=== PATIENT | male | born 1995 | race Two or more races ===

== ENCOUNTER → 2021-12-23 | Outpatient (REF) | payer OTHER ==
[2021-12-23 14:28] LABS: SEMEN APPEARANCE OPAQUE (OPAQUE); SEMEN VOLUME 3.5 ml (2.0-5.0)
[2021-12-23 14:29] LABS: SEMEN VISCOSITY LIQUID (LIQUID); SPERM CONCENTRATION 60.1 M/ml (>=15.0); WBC CONCENTRATION <=1 M/ml (<=1 M/ml)
== END ==
LOC: M LAB REF 14:26
DX: Z31.41 Encounter for fertility testing (principal)

== ENCOUNTER → 2022-01-07 | Outpatient (REF) | payer OTHER ==
[2022-01-07 18:03] LABS: SEMEN APPEARANCE OPAQUE (OPAQUE); SEMEN VISCOSITY LIQUID (LIQUID); SEMEN VOLUME 3.7 ml (2.0-5.0)
[2022-01-07 18:04] LABS: SPERM CONCENTRATION 113.8 M/ml (>=15.0); WBC CONCENTRATION <=1 M/ml (<=1 M/ml)
== END ==
LOC: M LAB REF 17:58
DX: Z31.41 Encounter for fertility testing (principal)

== ENCOUNTER 2022-01-14 06:30 | Emergency (ER) | payer OTHER ==
[~2022-01-14] VITALS: Ht 172.7 cm; Wt 108.2 kg
[2022-01-14] MEDS ORDERED: LIDO5DIS41 TOP (06:44)
[2022-01-14 08:27] LABS: BASO # 0.1 10^3/uL (0.0-0.2); BASO % 0.9 % (0.0-1.0); EOS # 0.2 10^3/uL (0.0-0.5); EOS % 3.2 % (0.0-3.0); HEMATOCRIT 41.8 % (42.0-52.0); HEMOGLOBIN 13.5 g/dl (13.5-17.5); LYMPH # 3.3 10^3/uL (1.5-5.0); MEAN CORPUSCULAR HEMOGLOBIN 29.8 pg (27.0-33.0); MEAN CORPUSCULAR HGB CONC 32.3 g/dl (32.0-36.5); MEAN CORPUSCULAR VOLUME 92.3 fl (80.0-96.0); MONO # 0.6 10^3/uL (0.0-0.8); MONO % 7.6 % (2.0-8.0); NEUTROPHILS # 3.2 10^3/uL (1.5-8.5); NEUTROPHILS % 43.9 % (36.0-66.0); PLATELET COUNT, AUTOMATED 267 10^3/uL (150-450); RED BLOOD COUNT 4.53 10^6/uL (4.30-6.10); WHITE BLOOD COUNT 7.4 10^3/uL (4.0-10.0)
[2022-01-14 08:47] LABS: BLOOD UREA NITROGEN 17 MG/DL (7-18); CALCIUM LEVEL 8.9 MG/DL (8.5-10.1); CARBON DIOXIDE LEVEL 27 MEQ/L (21-32); CHLORIDE LEVEL 106 MEQ/L (98-107); CREATININE FOR GFR 0.95 MG/DL (0.70-1.30); GLOMERULAR FILTRATION RATE > 60.0 (>60); GLUCOSE, FASTING 84 MG/DL (70-100); SODIUM LEVEL 138 MEQ/L (136-145)
[2022-01-14 08:53] LABS: CPK CREATINE PHOSPHOKINASE 62 U/L (39-308)
[2022-01-14] MEDS ORDERED: KETOROLAC 30 MG/ML 1ML VIAL IV ONE (09:45)
[2022-01-14 09:55] VITALS: BP 107/63
== END 2022-01-14 10:21 | disposition home or self-care (01) ==
LOC: M ED 06:30
DX: R07.9 Chest pain, unspecified (principal); R00.1 Bradycardia, unspecified
CPT/HCPCS: 71045; 80048; 82550; 84484; 85025; 85379; 87880; 93005; 96374; 99284; J1885

== ENCOUNTER → 2022-02-13 | Outpatient (REF) ==
[~2022-02-13] MED LIST: LIDO5DIS41 TOP
== END ==
LOC: M PLAIMG 12:00
PROVIDERS: ATTEND Internal Medicine
DX: R06.02 Shortness of breath (principal); M25.532 Pain in left wrist; M25.562 Pain in left knee